=== PATIENT | female | born 1980 | race Hispanic/Latino ===

== ENCOUNTER 2021-02-13 11:56 | Emergency (ER) | payer MEDICAID, OTHER ==
[~2021-02-13] VITALS: Ht 157.5 cm; Wt 131.1 kg
[2021-02-13 12:20] LABS: BASOPHILS % (AUTO) 0.4 % (0.0-5.0); EOSINOPHILS % (AUTO) 2.7 % (0.0-8.0); HEMATOCRIT 39.1 % (36-48); LYMPHOCYTES % (AUTO) 17.7 % (21.0-51.0); MEAN CORPUSCULAR VOLUME 81.3 fL (79-99); MONOCYTES % (AUTO) 5.9 % (3.0-13.0); NEUTROPHILS % (AUTO) 73.1 % (40.0-77.0); PLATELET COUNT (AUTO) 205 K/uL (130-400); RED BLOOD CELL COUNT(AUTO) 4.81 MIL/uL (4.00-5.50); RED CELL DISTRIBUTION WIDTH 15.7 % (11.0-15.5); WHITE BLOOD COUNT (AUTO) 9.3 K/uL (4.8-10.8)
[2021-02-13] MEDS ORDERED: 0.9%NACL 1000ML 1,000 ML IV ONE (12:30)
[2021-02-13] MEDS ORDERED: CEFTRIAXONE 1G VIAL IM ONE (12:30)
[2021-02-13] MEDS ORDERED: ACETAMINOPHEN 500 MG TABLET PO ONE (12:30)
[2021-02-13] MEDS ORDERED: CEFTRIAXONE 1G VIAL IVP ONE (12:30)
[2021-02-13] MEDS ORDERED: ALBUTEROL INHALER 90MCG/INH IH PRN (12:30)
[2021-02-13] MEDS ORDERED: AZITHROMYCIN 250 MG TABLET PO ONE (12:30)
[2021-02-13 12:36] LABS: CREATININE 0.9 mg/dL (0.5-1.5)
[2021-02-13 12:42] LABS: ALBUMIN 3.5 g/dL (3.5-5.0); BILIRUBIN,TOTAL 0.6 mg/dL (0.2-1.0); TOTAL PROTEIN, SERUM 8.1 g/dL (6.0-8.3)
[2021-02-13] MEDS ORDERED: D-ME1POW16 PO (13:25)
[2021-02-13 15:12] VITALS: BP 124/81
== END 2021-02-13 15:15 | disposition home or self-care (01) ==
LOC: EDH 11:56
DX: J06.9 Acute upper respiratory infection, unspecified (principal); E86.0 Dehydration; Z20.822 Contact with and (suspected) exposure to COVID-19; Z88.5 Allergy status to narcotic agent; Z79.899 Other long term (current) drug therapy
CPT/HCPCS: 36415; 71045; 80053; 84703; 85025; 87635; 87804 ×2; 87880; 96361; 96374; 99284; C9803; J0696; J7030; 93005